=== PATIENT | male | born 1935 | race Caucasian/White ===

== ENCOUNTER 2016-09-10 03:47 | Observation (INO) ==
--- NOTE | 2016-09-10 03:49 | Emergency Department Note ---
Disposition Clinical Impression: Anemia, GI bleed, COPD (chronic obstructive pulmonary disease) Disposition: Admitted As Inpatient Condition: Fair General Adult HPI - General Chief complaint: ED Shortness of Breath/Dyspnea Stated complaint: ASIA Time Seen by Provider: 09/10/16 03:47 - Related Data Allergies Allergy/AdvReac Type Severity Reaction Status Date / Time No Known Allergies Allergy Verified 09/10/16 03:48 Past Medical History - Past Medical History Medical history: Reports: diabetes, hypertension, other Surgical history: Reports: appendectomy, other Psychiatric history: Reports: depression - Social History Smoking Status: Former smoker Alcohol use: Reports: none Drug use: Reports: none Course Vital Signs Temperature 98.9 F 09/10/16 03:49 Pulse Rate 93 09/10/16 03:49 Respiratory Rate 18 09/10/16 03:49 Blood Pressure 116/67 09/10/16 03:49 O2 Sat by Pulse Oximetry 89 09/10/16 03:49 Temperature 98.9 F 09/10/16 03:49 Pulse Rate 80 09/10/16 05:19 Respiratory Rate 18 09/10/16 06:17 Blood Pressure 124/68 09/10/16 06:17 O2 Sat by Pulse Oximetry 100 09/10/16 05:19 Oxygen Delivery Oxygen Delivery Nasal Cannula Medical Decision Making - Lab Data Result diagrams: 09/10/16 04:21 09/10/16 04:21 Lab Results 09/10/16 09/10/16 09/10/16 Range/Units 04:21 04:21 04:21 WBC 9.3 (4.3-11.1) K/mcL RBC 2.34 L (4.19-5.50) M/mcL Hgb 7.5 L (12.9-16.9) g/dL Hct 23.7 L (37.5-50.1) % MCV 101.3 H (83.0-100.0) fL MCH 32.1 (28.0-33.3) pg MCHC 31.6 (31.6-35.5) g/dL RDW 13.9 (11.5-14.5) % Plt Count 312 (140-400) K/mcL MPV 9.4 (9.4-12.4) fL Immature Gran % 1.0 (0-4) % Seg Neutrophils % 69.6 % Lymphocytes % 13.4 % Monocytes % 9.8 % Eosinophils % 5.8 % Basophils % 0.4 % Neutrophils # 6.5 (1.6-8.9) K/mcL Lymphocytes # 1.2 (0.6-4.6) K/mcL Monocytes # 0.9 (0.0-1.3) K/mcL Eosinophils # 0.5 (0.0-0.6) K/mcL Basophils # 0.0 (0.0-0.2) K/mcL Sodium 137 (136-145) mEq/L Potassium 4.0 (3.5-4.5) mEq/L Chloride 97 L (98-109) mEq/L Carbon Dioxide 33 H (19-29) mEq/L BUN 17 (8-26) mg/dL Creatinine 1.09 (0.72-1.25) mg/dL Est GFR ( Amer) > 60 (> 60) Est GFR (Non-Af Amer) > 60 (> 60) BUN/Creatinine Ratio 16 (6-26) Glucose 106 H (70-99) mg/dL Calculated Osmolality 286 (280-300) Lactic Acid 1.4 (0.5-2.2) mmol/L Calcium 8.4 L (8.6-10.8) mg/dL Troponin I (0-0.03) ng/mL B-Natriuretic Peptide (0-100) pg/mL 09/10/16 09/10/16 Range/Units 04:21 04:21 WBC (4.3-11.1) K/mcL RBC (4.19-5.50) M/mcL Hgb (12.9-16.9) g/dL Hct (37.5-50.1) % MCV (83.0-100.0) fL MCH (28.0-33.3) pg MCHC (31.6-35.5) g/dL RDW (11.5-14.5) % Plt Count (140-400) K/mcL MPV (9.4-12.4) fL Immature Gran % (0-4) % Seg Neutrophils % % Lymphocytes % % Monocytes % % Eosinophils % % Basophils % % Neutrophils # (1.6-8.9) K/mcL Lymphocytes # (0.6-4.6) K/mcL Monocytes # (0.0-1.3) K/mcL Eosinophils # (0.0-0.6) K/mcL Basophils # (0.0-0.2) K/mcL Sodium (136-145) mEq/L Potassium (3.5-4.5) mEq/L Chloride (98-109) mEq/L Carbon Dioxide (19-29) mEq/L BUN (8-26) mg/dL Creatinine (0.72-1.25) mg/dL Est GFR ( Amer) (> 60) Est GFR (Non-Af Amer) (> 60) BUN/Creatinine Ratio (6-26) Glucose (70-99) mg/dL Calculated Osmolality (280-300) Lactic Acid (0.5-2.2) mmol/L Calcium (8.6-10.8) mg/dL Troponin I 0.03 (0-0.03) ng/mL B-Natriuretic Peptide 193 H (0-100) pg/mL Attestation Statement - Attestation Attestation: I examined this patient and my medical decision-making was reviewed with the CHILD WELFARE SOCIAL WORKER/PA/Advanced Practice Nurse/Resident Physician. I agree with the documented findings, disposition and treatment plan as described except to the extent set forth below. [id number] time provided Patient presents from home by EMS complaining of dyspnea. He is not oxygen dependent. Appears in no acute distress and exam. Seen and evaluated in conjunction with the resident physician Daily
[2016-09-10] MEDS ORDERED: Ipratropium/Albuterol Neb 3 ML IH ONE (04:11)
--- NOTE | 2016-09-10 04:11 | Emergency Department Note ---
Disposition Clinical Impression: Anemia Qualifiers: Anemia type: unspecified type Qualified Code(s): D64.9 - Anemia, unspecified GI bleed Qualifiers: GI bleed type/associated pathology: melena Qualified Code(s): K92.1 - Melena COPD (chronic obstructive pulmonary disease) Qualifiers: COPD type: unspecified COPD Qualified Code(s): J44.9 - Chronic obstructive pulmonary disease, unspecified Disposition: Admitted As Inpatient Condition: Fair Forms: ED Satisfaction Letter Time of Disposition: 06:26 SOB HPI - General Chief Complaint: ED Shortness of Breath/Dyspnea Stated Complaint: ASIA Time Seen by Provider: 09/10/16 03:47 Source: patient, EMS Limitations: no limitations Nursing Notes Reviewed: Yes Vital Signs Reviewed: Yes - History of Present Illness Patient is a 80-year-old male who presents to [facility] ED with a chief complaint of difficulty breathing. Patient states he had a total knee replacement of the left knee done approximately one week ago in [place]. Ever since then, he has had exertional dyspnea. His daughter states he seems like he is out of breath all the time. He was initially on oxygen at rehabilitation but then was not sent home with any oxygen. Denies any nausea, vomiting, fever or chills. No problems with urination or bowel movements. No chest pain or abdominal pain. Patient does admit to a feeling of dysphagia ever since his surgery. States he has trouble swallowing food and feels like it gets caught in his chest and he has to cough it back up. Pt Subjective Complaint: shortness of breath Onset (ago): day(s) Severity: moderate Consistency/Duration: gradually worsening Improves with: oxygen, rest Worsens with: exertion Associated symptoms: Reports: wheezing. Denies: chest pain, fever, cough, nausea/vomiting, abdominal pain Treatment prior to arrival: oxygen Cough present: No - Related Data Home oxygen amount: none Allergies Allergy/AdvReac Type Severity Reaction Status Date / Time No Known Allergies Allergy Verified 09/10/16 03:48 All systems ED: reviewed and negative except as stated. Past Medical History - Past Medical History Attestation: Yes The following information was validated with the patient. Source: patient Medical history: Reports: diabetes, hypertension, other Surgical history: Reports: appendectomy, other Psychiatric history: Reports: depression - Social History Smoking Status: Former smoker Smokeless Tobacco Status: No Alcohol use: Reports: none Drug use: Reports: none Physical Exam - General Limitations: no limitations General appearance: alert - Head Head exam: atraumatic, normocephalic, normal inspection - Eye Eye exam: Present: normal appearance, EOMI - ENT ENT exam: normal exam, normal oropharynx, mucous membranes moist - Neck Neck exam: Present: normal inspection, full ROM, trachea midline - Chest Chest inspection: Present: normal inspection, symmetric chest wall rise - Respiratory Respiratory exam: Present: wheezes (anterior; decreased posterior breath sounds) - Cardiovascular Cardiovascular exam: Present: regular rate, normal rhythm, normal heart sounds - Abdominal Exam Abdominal exam: Present: soft, Non-Tender. Absent: tenderness, distention, guarding, rebound, rigidity - Rectal Exam Rectal exam: Present: normal inspection, heme (+) stool, black stool - Extremities Exam Extremities exam: Present: normal inspection, full ROM, pedal edema (LLE). Absent: tenderness - Back Exam Back exam: Present: normal inspection, full ROM. Absent: tenderness - Neurological Exam Neurological exam: Present: alert - Psychiatric Psychiatric exam: Present: normal affect, normal mood - Skin Skin exam: Present: warm, dry, intact, normal color Course Course Narrative: Patient seen and examined. Difficulty breathing since his surgery. Cardiopulmonary workup initiated. Concern for possible blood clot since she does have swelling in his leg as well as shortness of breath and hypoxemia. CTA of the chest ordered. Patient does have wheezes diffusely anteriorly. We will go ahead and order a DuoNeb treatment. - Reevaluation(s) Reevaluation #1: Patient's lab work shows hemoglobin of 7.5. When questioned if patient has any bleeding in his stool, they state it has been black like coal ever since the surgery. However, they attributed it to the iron tablets he is been taking. Patient continues to have some wheezing and shortness of breath. We will talk to hospitalist about admission for possible upper GI bleed and COPD exacerbation. IV Protonix and type and screen ordered. Time: 05:55 Reevaluation #2: I spoke with hospitalist Dr. Mcfarland who has accepted patient for admission. He would like us to go ahead and give one unit packed RBCs. This has been ordered. He would also like a Protonix drip. This has been ordered. Time: 06:23 Vital Signs Temperature 98.9 F 09/10/16 03:49 Pulse Rate 93 09/10/16 03:49 Respiratory Rate 18 09/10/16 03:49 Blood Pressure 116/67 09/10/16 03:49 O2 Sat by Pulse Oximetry 89 09/10/16 03:49 Temperature 98.9 F 09/10/16 03:49 Pulse Rate 80 09/10/16 05:19 Respiratory Rate 18 09/10/16 05:19 Blood Pressure 128/70 09/10/16 05:19 O2 Sat by Pulse Oximetry 100 09/10/16 05:19 Oxygen Delivery Oxygen Delivery Room Air Shortness of Breath/Dyspnea - Medical Records Medical records reviewed: Yes I reviewed the patient's medical records. - Lab Data Lab results reviewed: Yes I reviewed the patient's lab results. Result diagrams: 09/10/16 04:21 09/10/16 04:21 Lab Results 09/10/16 09/10/16 09/10/16 Range/Units 04:21 04:21 04:21 WBC 9.3 (4.3-11.1) K/mcL RBC 2.34 L (4.19-5.50) M/mcL Hgb 7.5 L (12.9-16.9) g/dL Hct 23.7 L (37.5-50.1) % MCV 101.3 H (83.0-100.0) fL MCH 32.1 (28.0-33.3) pg MCHC 31.6 (31.6-35.5) g/dL RDW 13.9 (11.5-14.5) % Plt Count 312 (140-400) K/mcL MPV 9.4 (9.4-12.4) fL Immature Gran % 1.0 (0-4) % Seg Neutrophils % 69.6 % Lymphocytes % 13.4 % Monocytes % 9.8 % Eosinophils % 5.8 % Basophils % 0.4 % Neutrophils # 6.5 (1.6-8.9) K/mcL Lymphocytes # 1.2 (0.6-4.6) K/mcL Monocytes # 0.9 (0.0-1.3) K/mcL Eosinophils # 0.5 (0.0-0.6) K/mcL Basophils # 0.0 (0.0-0.2) K/mcL Sodium 137 (136-145) mEq/L Potassium 4.0 (3.5-4.5) mEq/L Chloride 97 L (98-109) mEq/L Carbon Dioxide 33 H (19-29) mEq/L BUN 17 (8-26) mg/dL Creatinine 1.09 (0.72-1.25) mg/dL Est GFR ( Amer) > 60 (> 60) Est GFR (Non-Af Amer) > 60 (> 60) BUN/Creatinine Ratio 16 (6-26) Glucose 106 H (70-99) mg/dL Calculated Osmolality 286 (280-300) Lactic Acid 1.4 (0.5-2.2) mmol/L Calcium 8.4 L (8.6-10.8) mg/dL Troponin I (0-0.03) ng/mL B-Natriuretic Peptide (0-100) pg/mL 09/10/16 09/10/16 Range/Units 04:21 04:21 WBC (4.3-11.1) K/mcL RBC (4.19-5.50) M/mcL Hgb (12.9-16.9) g/dL Hct (37.5-50.1) % MCV (83.0-100.0) fL MCH (28.0-33.3) pg MCHC (31.6-35.5) g/dL RDW (11.5-14.5) % Plt Count (140-400) K/mcL MPV (9.4-12.4) fL Immature Gran % (0-4) % Seg Neutrophils % % Lymphocytes % % Monocytes % % Eosinophils % % Basophils % % Neutrophils # (1.6-8.9) K/mcL Lymphocytes # (0.6-4.6) K/mcL Monocytes # (0.0-1.3) K/mcL Eosinophils # (0.0-0.6) K/mcL Basophils # (0.0-0.2) K/mcL Sodium (136-145) mEq/L Potassium (3.5-4.5) mEq/L Chloride (98-109) mEq/L Carbon Dioxide (19-29) mEq/L BUN (8-26) mg/dL Creatinine (0.72-1.25) mg/dL Est GFR ( Amer) (> 60) Est GFR (Non-Af Amer) (> 60) BUN/Creatinine Ratio (6-26) Glucose (70-99) mg/dL Calculated Osmolality (280-300) Lactic Acid (0.5-2.2) mmol/L Calcium (8.6-10.8) mg/dL Troponin I 0.03 (0-0.03) ng/mL B-Natriuretic Peptide 193 H (0-100) pg/mL - Radiology Data Radiology results reviewed: Yes I reviewed the patient's radiology results. Chest X-Ray 09/10/16 03:49 IMPRESSION: Right basilar opacity with small right pleural effusion may represent pneumonia. Recommend clinical correlation and follow-up to resolution. D/ / Mj Olvera MD / Mj Olvera MD Interpreting Provider: Mj Olvera MD Chest CTA 09/10/16 03:56 IMPRESSION: 1. There is no evidence of a pulmonary embolism. 2. Small bilateral pleural effusions are noted. D/ / Aurelia Alexander MD / Aurelia Alexander MD Interpreting Provider: Aurelia Alexander MD - EKG Data EKG attestation: Yes I reviewed and interpreted this EKG. EKG results narrative: EKG done at [facility] shows normal sinus rhythm with a rate of [address] elevation or depression. Normal axis. Right bundle branch block present. Findings unchanged from prior EKG done 02/17/2002.
[2016-09-10 04:52] LABS: Basophils % 0.4 %; Eosinophils # 0.5 K/mcL (0.0-0.6); Eosinophils % 5.8 %; Hematocrit 23.7 % (37.5-50.1); Lymphocytes # 1.2 K/mcL (0.6-4.6); Lymphocytes % 13.4 %; Mean Corpuscular HGB Conc 31.6 g/dL (31.6-35.5); Mean Corpuscular Hemoglobin 32.1 pg (28.0-33.3); Mean Corpuscular Volume 101.3 fL (83.0-100.0); Mean Platelet Volume 9.4 fL (9.4-12.4); Monocytes # 0.9 K/mcL (0.0-1.3); Monocytes % 9.8 %; Neutrophils # 6.5 K/mcL (1.6-8.9); Platelet Count 312 K/mcL (140-400); Red Blood Count 2.34 M/mcL (4.19-5.50); Red Cell Distribution Width 13.9 % (11.5-14.5); Segmented Neutrophils % 69.6 %
[2016-09-10 05:04] LABS: Hemoglobin 7.5 g/dL (12.9-16.9)
[2016-09-10 05:07] LABS: BUN/Creatinine Ratio 16 (6-26); Blood Urea Nitrogen 17 mg/dL (8-26); Calcium 8.4 mg/dL (8.6-10.8); Carbon Dioxide 33 mEq/L (19-29); Chloride 97 mEq/L (98-109); Glucose 106 mg/dL (70-99); Osmolality,Calculated 286 (280-300); Sodium 137 mEq/L (136-145); eGFR For African Americans > 60 (> 60); eGFR For Non-African Americans > 60 (> 60)
[2016-09-10] MEDS: Pantoprazole 40 MG VIAL IVP ONE ×2 (05:54→05:55)
[2016-09-10] MEDS: Pantoprazole 40 MG in 0.9 % Sodium Chloride Mini Bag 100 ML IVC SCH ×4 (07:32→20:32)
--- NOTE | 2016-09-10 08:34 | Internal Med Progress Note ---
Date of Encounter: 09/10/16 Time of Encounter: 07:40 - Constitutional Vitals: Temp Pulse Resp BP Pulse Ox 98.9 F 80 18 124/68 100 09/10/16 03:49 09/10/16 05:19 09/10/16 06:17 09/10/16 06:17 09/10/16 05:19 General appearance: Present: cooperative, A&O X 3, answers questions appropriately - Neck Neck exam general surgery: Present: supple, trachea midline. Absent: lymphadenopathy - Respiratory Respiratory exam: Present: CTAB, rhonchi. Absent: accessory muscle use, rales - Cardiovascular Cardiovascular exam: Present: RRR, +S1, +S2. Absent: diastolic murmur, gallop, rubs, systolic murmur - GI/Abdominal GI/Abdominal exam: Present: normal bowel sounds, soft, no peritoneal signs. Absent: distended, tenderness - Extremities Exam Extremities exam: Present: warm, radial pulses palpable and symetrical. Absent : calf tenderness, cyanotic, pedal edema - Neurological Exam Neurological exam: Present: alert, oriented X3, no focal deficits. Absent: facial droop, speech deficit - Skin Skin exam: Present: dry, intact Internal Medicine: Result - Labs CBC & Chem 7: 09/10/16 04:21 09/10/16 04:21 - Impressions Impressions Chest X-Ray 09/10/16 03:49 IMPRESSION: Right basilar opacity with small right pleural effusion may represent pneumonia. Recommend clinical correlation and follow-up to resolution. D/ / Mj Olvera MD / Mj Olvera MD Interpreting Provider: Mj Olvera MD Chest CTA 09/10/16 03:56 IMPRESSION: 1. There is no evidence of a pulmonary embolism. 2. Small bilateral pleural effusions are noted. D/ / Aurelia Alexander MD / Aurelia Alexander MD Interpreting Provider: Aurelia Alexander MD Consult Discharge Plan - Plan Referrals: Darius Olivier DO [Primary Care Provider] - 09/12/16 8:15 am
[2016-09-10] MEDS: D5% in 0.45% NACL 1,000 ML IVC SCH ×2 (08:44→20:10)
--- NOTE | 2016-09-10 08:44 | Internal Med History&Physical ---
Date of Encounter: 09/10/16 Time of Encounter: 07:40 Assessment and Plan (1) GI bleed Current visit: Yes Status: Suspected Patient presented with a history of dark-colored stools. With severe anemia. Also complaining of epigastric abdominal pain. Concern for peptic ulcer disease with bleeding. Will keep nothing by mouth. Consult GI. Monitor blood counts. IV hydration. IV PPI. High risk for complications due to severity of anemia. Qualifiers: GI bleed type/associated pathology: melena Qualified Code(s): K92.1 - Melena (2) Anemia Current visit: Yes Status: Suspected Suspected acute blood loss anemia. Patient's last hemoglobin levels here was from February and at that time it was normal. Currently at 7.5. We will monitor blood counts. Check iron, folic acid and B12 levels. He has symptomatic anemia with shortness of breath. He has been ordered 1 unit of packed red blood cell transfusion. Qualifiers: Anemia type: other cause Other causes of anemia: acute posthemorrhagic Qualified Code(s): D62 - Acute posthemorrhagic anemia (3) Diabetes mellitus, type 2 Current visit: Yes Status: Chronic Patient reports a history of borderline diabetes. Will monitor blood sugars. 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 Will use bronchodilators as needed. Does not appear to be an active acute COPD exacerbation. Qualifiers: COPD type: chronic bronchitis Chronic bronchitis type: simple Qualified Code(s): J41.0 - Simple chronic bronchitis (5) History of left knee replacement Current visit: Yes Status: Chronic Status post recent left knee replacement surgery. High risk for DVT. However given possible acute GI bleed, we will hold off on medical anticoagulation to upper GI endoscopy is done. For now will place on SCDs. Internal Medicine - H&P: HPI Chief complaint: Shortness of breath and dark stools along with epigastric pain Admitted From: Emergency Dept Plans for Post Hospital Care: Home History of present illness: Mr. Calzada is a 80 year old male patient with a history of COPD, diabetes mellitus type 2, recent left knee replacement presented to the ER with complaints of shortness of breath. Patient is recovering from his surgery that was done about a week back at home. He has been having dark-colored stools for 2-3 months now but over the past couple of weeks is also having increased abdominal pain especially when he takes any food. It feels like a sharp and severe burning sensation. He has also been having some shortness of breath along with wheezing without with some cough. No sputum. No nausea or vomiting. No hematemesis. Patient does not recollect if he is on any anticoagulation but does take aspirin. Patient reports that he had a colonoscopy in 2014 but never an upper GI endoscopy. The colonoscopy showed that the patient had multiple diverticula without any active bleeding. Past Med Surg Social Fam HX - Past Medical History Attestation: Yes The following information was validated with the patient. Source: patient, old records reviewed Medical history: diabetes, hypertension, other Psychiatric history: depression - Past Surgical History Surgical History: appendectomy, other - Social History Smoking Status: Former smoker Smokeless Tobacco Status: No Alcohol use: none Drug use: none - Additional Family History Additional family history: Reviewed with patient and found to be noncontributory at this time Internal Medicine - H&P: Meds Allergies No Known Allergies Allergy (Verified 09/10/16 03:48) All Systems PM: A 10-system review of systems was performed and is negative for pertinent findings except as documented above in the HPI. - Constitutional Constitutional: no chills, no fever(s), no night sweats - EENT Eyes: no change in vision, no discharge, no pain, no photophobia Ears: no ear discharge, no ear pain, no tinnitus Nose, mouth and throat: no dysphagia, no nasal discharge, no neck pain, no sore throat - Cardiovascular Cardiovascular ROS IM: no chest pain, no diaphoresis, no dyspnea, no lightheadedness, no palpitations, no syncope - Respiratory Respiratory: cough, dyspnea, no wheezing, no excessive phlegm production - Gastrointestinal Gastrointestinal: abdominal pain, dyspepsia, melena, no diarrhea, no hematemesis , no hematochezia, no nausea, no vomiting - Musculoskeletal Musculoskeletal ROS IM: no numbness, no tingling - Integumentary Integumentary IM: no rash, no unusual bruising - Neurological Neurological ROS: no confusion, no convulsions, no focal weakness, no numbness, no tingling, no tremor(s) - Hematologic/Lymphatic Hematologic/Lymphatic: no easy bruising - Constitutional Vitals: Temp Pulse Resp BP Pulse Ox 98.9 F 80 18 124/68 100 09/10/16 03:49 09/10/16 05:19 09/10/16 06:17 09/10/16 06:17 09/10/16 05:19 General appearance: Present: cooperative, mild distress, A&O X 3, answers questions appropriately - Respiratory Respiratory exam: Present: rhonchi. Absent: accessory muscle use, rales, wheezes - Cardiovascular Cardiovascular exam: Present: RRR, +S1, +S2. Absent: diastolic murmur, gallop, rubs, systolic murmur - GI/Abdominal GI/Abdominal exam: Present: normal bowel sounds, soft, tenderness (epigastric), no peritoneal signs. Absent: distended - Extremities Exam Extremities exam: Present: warm, radial pulses palpable and symetrical. Absent : calf tenderness, cyanotic, pedal edema Additional comments: s/p left knee replacement - Neurological Exam Neurological exam: Present: alert, oriented X3, no focal deficits. Absent: facial droop, speech deficit - Skin Skin exam: Present: dry, intact, pallor Internal Med - H&P Results - Labs CBC & Chem 7: 09/10/16 04:21 09/10/16 04:21 - Impressions Impressions Chest X-Ray 09/10/16 03:49 IMPRESSION: Right basilar opacity with small right pleural effusion may represent pneumonia. Recommend clinical correlation and follow-up to resolution. D/ / Mj Olvera MD / Mj Olvera MD Interpreting Provider: Mj Olvera MD Chest CTA 09/10/16 03:56 IMPRESSION: 1. There is no evidence of a pulmonary embolism. 2. Small bilateral pleural effusions are noted. D/ / Aurelia Alexander MD / Aurelia Alexander MD Interpreting Provider: Aurelia Alexander MD
[2016-09-10] MEDS ORDERED: 0.9 % Sodium Chloride 250 ML ONE (10:14)
[2016-09-10] MEDS ORDERED: Dextrose Gel 15 GM PO PRN ×2 (10:24)
[2016-09-10] MEDS ORDERED: D5% in Water 1,000 ML IVC PRN ×2 (10:24→23:30)
[2016-09-10] MEDS ORDERED: *HR* Dextrose 50 % in Water (Syg) 50 ML SYRINGE IVP PRN (10:24)
[2016-09-10] MEDS ORDERED: Ipratropium/Albuterol Neb 3 ML IH PRN (10:25)
[2016-09-10] MEDS: Insulin LISPRO 300 UNITS/3 ML VIAL SQ SCH ×2 (12:09→20:27)
--- NOTE | 2016-09-10 12:35 | Gastroenterology Consult Note ---
<ZenaJustice Leiva - Last Filed: 09/10/16 12:33> Date of Encounter: 09/10/16 Time of Encounter: 11:20 - Assessment and plan (1) Anemia Current Visit: Yes Status: Suspected Assessment and plan: Hgb 7.5 on admission. Continue to monitor CBC and transfuse PRBC as needed. Qualifiers: Anemia type: other cause Other causes of anemia: acute posthemorrhagic Qualified Code(s): D62 - Acute posthemorrhagic anemia (2) GI bleed Current Visit: Yes Status: Suspected Assessment and plan: Patient with melena. Plan for EGD today to r/o esophagitis, gastritis, duodenitis, PUD, MW tear, or AVM. Keep pt NPO. Qualifiers: GI bleed type/associated pathology: melena Qualified Code(s): K92.1 - Melena (3) COPD (chronic obstructive pulmonary disease) Current Visit: Yes Status: Chronic Qualifiers: COPD type: chronic bronchitis Chronic bronchitis type: simple Qualified Code(s): J41.0 - Simple chronic bronchitis - Time Spent With Patient Total time spent is greater than 50% in coordination of care (as documented) at patient's floor/unit and/or counseling patient: GI History of Present Illness - Data of Consult Patient: new to practice Consult date: 09/10/16 Requesting Physician: Jossy Jin - Consult Narrative Reason for consult: Anemia, melena History of present illness: Mr. Calzada is a 80 year old male with PMHx of COPD, DM, HTN, and recent left knee replacement who presented to the ED with SOB. He reports having dark colored stool for the past 2-3 months. He reports increased abdominal pain over the past couple of weeks, which is worsened with food intake. He denies fever, chills, chest pain, nausea, vomiting, hematemesis, or hematochezia. Procedures: Colonoscopy 03/22/2015 Dr. Clark: Diverticulosis Barium enema w/air 03/22/2015: Diverticulosis otherwise unremarkable. NSAIDs: ASA Anticoagulation: None Past Med Surg Social Fam HX - Past Medical History Medical history: diabetes, hypertension, other Psychiatric history: depression - Past Surgical History Surgical History: appendectomy, other - Social History Smoking Status: Former smoker Smokeless Tobacco Status: No Alcohol use: none Drug use: none - Gastrointestinal Gastrointestinal: Present: as per HPI - Constitutional Constitutional: as per HPI - EENT Eyes: as per HPI Ears: Present: as per HPI Nose, mouth and throat: Present: as per HPI - Cardiovascular Cardiovascular ROS: Present: as per HPI - Respiratory Respiratory IM: Present: as per HPI - Genitourinary Genitourinary: Absent: change in color, Urinary frequency - Neurological ROS Neurological GI: Present: as per HPI - Hematologic/Lymphatic Hematologic/Lymphatic pediatric: Present: as per HPI - Musculoskeletal Musculoskeletal ROS GI: Present: as per HPI - Integumentary Integumentary GI: Present: as per HPI - Psychiatric ROS Psychiatric GI: Present: as per HPI - Endocrine Endocrine IM: Present: as per HPI - Constitutional Vitals: Temp Pulse Resp BP Pulse Ox 98.7 F 76 16 117/58 93 09/10/16 12:03 09/10/16 12:03 09/10/16 12:03 09/10/16 12:03 09/10/16 12:03 General appearance: Present: cooperative, A&O X 3, no acute distress, answers questions appropriately - Head Head exam: Present: atraumatic, normocephalic - Eye Eye exam: Present: normal appearance, sclera anicteric - ENT ENT exam: Present: mucous membranes dry - Neck Neck exam general surgery: Present: normal inspection, trachea midline - Respiratory Respiratory exam: Present: decreased breath sounds, CTAB. Absent: rales, rhonchi - Cardiovascular Cardiovascular exam: Present: RRR, +S1, +S2 - GI/Abdominal GI/Abdominal exam: Present: soft, tenderness (mild epigastric), no peritoneal signs. Absent: distended, firm, guarding - Rectal Rectal exam: Present: deferred - Extremities Exam Extremities exam: Present: warm - Neurological Exam Neurological exam: Present: no focal deficits - Psychiatric Psychiatric exam: Present: normal affect, normal mood - Skin Skin exam: Present: dry, intact, normal color, warm Results - Labs CBC & Chem 7: 09/10/16 04:21 09/10/16 04:21 Labs: Last Result Calcium 8.4 mg/dL (8.6-10.8) L 09/10/16 04:21 Troponin I 0.03 ng/mL (0-0.03) 09/10/16 04:21 Entire Visit Hgb 7.5 g/dL (12.9-16.9) L 09/10/16 04:21 Hct 23.7 % (37.5-50.1) L 09/10/16 04:21 Consult Discharge Plan - Plan Referrals: Darius Olivier DO [Primary Care Provider] - 09/12/16 8:15 am <Crystal Jeffery - Last Filed: 09/10/16 17:51> Date of Encounter: 09/10/16 Time of Encounter: 17:00 - Time Spent With Patient Total time spent is greater than 50% in coordination of care (as documented) at patient's floor/unit and/or counseling patient: GI History of Present Illness - Data of Consult Requesting Physician: Daria Palumbo CNP - Consult Narrative History of present illness: Mr. Calzada is a 80 year old male - Constitutional Vitals: Temp Pulse Resp BP Pulse Ox 98.8 F 84 16 138/82 94 09/10/16 15:52 09/10/16 17:22 09/10/16 17:22 09/10/16 17:22 09/10/16 17:22 Results - Labs CBC & Chem 7: 09/10/16 15:23 09/10/16 04:21 Labs: Last Result Calcium 8.4 mg/dL (8.6-10.8) L 09/10/16 04:21 Troponin I 0.03 ng/mL (0-0.03) 09/10/16 04:21 Entire Visit Hgb 7.9 g/dL (12.9-16.9) L 09/10/16 15:23 Hct 24.6 % (37.5-50.1) L 09/10/16 15:23 - Attending Attestation I examined this patient and my medical decision-making was reviewed with the PAPER WINDER/PA/Advanced Practice Nurse/Resident Physician. I agree with the documented findings, disposition and treatment plan as described except to the extent set forth below.
[2016-09-10 15:31] LABS: Hematocrit 24.6 % (37.5-50.1); Hemoglobin 7.9 g/dL (12.9-16.9)
[2016-09-10] MEDS ORDERED: *HR* Midazolam HCl 5 MG/5 ML VIAL IVP ONE (16:13)
[2016-09-10] MEDS ORDERED: *HR* FentaNYL (PF) 100 MCG/2 ML VIAL ONE (16:14)
[2016-09-10] MEDS ORDERED: Simethicone 40 MG/0.6 ML MLS IR ONE (16:27)
[2016-09-10] MEDS ORDERED: *HR* FentaNYL (PF) 100 MCG/2 ML VIAL IVP PRN (16:27)
[2016-09-10] MEDS ORDERED: Tetracaine/Benzocaine/Butamben 200MG/SPRAY (100SPY/BOT) MM ONE (16:27)
[2016-09-10] MEDS ORDERED: *HR* Midazolam HCl 5 MG/5 ML VIAL IVP PRN (16:27)
[2016-09-10] MEDS ORDERED: 0.9 % Sodium Chloride 1,000 ML IVC SCH (16:30)
[2016-09-10] MEDS ORDERED: 0.9 % Sodium Chloride 500 ML IVC SCH (16:45)
--- NOTE | 2016-09-10 19:06 | Electrocardiograph Report ---
[place] [address] Test Date: 2016-09-10 Pat Name: Herman Calzada Department: 105 Room: 3B22 Gender: M Ambulatory Care Nurse: RAULITO : 1935 Requested By: Prema Ambrosio Order Number: [id number] Reading MD: Yajaira Noble Measurements Intervals [place] Rate: 89 P: 58 CT: 160 QRS: 22 QRSD: 126 T: 50 QT: 365 QTc: 412 Interpretive Statements SINUS RHYTHM RIGHT BUNDLE BRANCH BLOCK [120+ ms QRS DURATION, UPRIGHT V1, 40+ ms S IN I/aVL/V4/V5/V6] Electronically Signed On 09-10-2016 19:04:43 EDT by Yajaira Noble
[2016-09-10 21:39] LABS: Hematocrit 25.3 % (37.5-50.1); Hemoglobin 8.1 g/dL (12.9-16.9)
[2016-09-11] MEDS: Pantoprazole 40 MG in 0.9 % Sodium Chloride Mini Bag 100 ML IVC SCH ×5 (00:13→22:30)
[2016-09-11 01:49] LABS: Basophils % 0.5 %; Eosinophils # 0.6 K/mcL (0.0-0.6); Eosinophils % 8.3 %; Hematocrit 26.6 % (37.5-50.1); Hemoglobin 8.3 g/dL (12.9-16.9); Immature Granulocytes % 0.7 % (0-4); Lymphocytes # 0.9 K/mcL (0.6-4.6); Lymphocytes % 11.9 %; Mean Corpuscular HGB Conc 31.2 g/dL (31.6-35.5); Mean Corpuscular Hemoglobin 31.7 pg (28.0-33.3); Mean Corpuscular Volume 101.5 fL (83.0-100.0); Monocytes # 0.8 K/mcL (0.0-1.3); Monocytes % 11.1 %; Platelet Count 290 K/mcL (140-400); Red Blood Count 2.62 M/mcL (4.19-5.50); Red Cell Distribution Width 14.4 % (11.5-14.5); Segmented Neutrophils % 67.5 %
[2016-09-11 02:01] LABS: BUN/Creatinine Ratio 12 (6-26); Blood Urea Nitrogen 13 mg/dL (8-26); Calcium 8.2 mg/dL (8.6-10.8); Carbon Dioxide 34 mEq/L (19-29); Chloride 100 mEq/L (98-109); Glucose 125 mg/dL (70-99); Osmolality,Calculated 290 (280-300); Sodium 139 mEq/L (136-145); eGFR For African Americans > 60 (> 60); eGFR For Non-African Americans > 60 (> 60)
[2016-09-11] MEDS: D5% in 0.45% NACL 1,000 ML IVC SCH ×2 (07:59→21:15)
[2016-09-11] MEDS: Insulin LISPRO 300 UNITS/3 ML VIAL SQ SCH ×4 (08:39→21:19)
--- NOTE | 2016-09-11 18:35 | Internal Med Progress Note ---
Date of Encounter: 09/11/16 Time of Encounter: 18:33 - Assessment and plan (1) Anemia Current Visit: Yes Status: Suspected Qualifiers: Anemia type: other cause Other causes of anemia: acute posthemorrhagic Qualified Code(s): D62 - Acute posthemorrhagic anemia (2) GI bleed Current Visit: Yes Status: Suspected Qualifiers: GI bleed type/associated pathology: melena Qualified Code(s): K92.1 - Melena (3) COPD (chronic obstructive pulmonary disease) Current Visit: Yes Status: Chronic Qualifiers: COPD type: chronic bronchitis Chronic bronchitis type: simple Qualified Code(s): J41.0 - Simple chronic bronchitis (4) Diabetes mellitus, type 2 Current Visit: Yes Status: Chronic Qualifiers: Diabetes mellitus complication status: without complication Diabetes mellitus correction insulin use: without bed bug exterminator use Qualified Code(s): E11.9 - Type 2 diabetes mellitus without complications (5) History of left knee replacement Current Visit: Yes Status: Chronic - Subjective Interval history: Mr. Hermna Low is an 80-year-old male presented with melena and GI bleed. Recently he had knee surgery and was placed on blood thinners. Blood thinners as stopped and did gastroenterology was consulted. EGD was done today which showed no active bleed but significant amount of gastritis. Patient will be started on Protonix. - Constitutional Vitals: Temp Pulse Resp BP Pulse Ox 98.4 F 78 16 138/76 95 09/11/16 15:11 09/11/16 15:11 09/11/16 15:11 09/11/16 15:11 09/11/16 15:11 General appearance: Present: cooperative, mild distress, A&O X 3, answers questions appropriately - Head Head exam: Present: atraumatic, normocephalic - Eye Eye exam: Present: PERRL, conjuntiva pink, sclera anicteric Pupils: Present: PERRL - Neck Neck exam general surgery: Present: supple, trachea midline. Absent: lymphadenopathy - Respiratory Respiratory exam: Present: CTAB. Absent: accessory muscle use, rales, rhonchi, wheezes - Cardiovascular Cardiovascular exam: Present: RRR, +S1, +S2. Absent: diastolic murmur, gallop, rubs, systolic murmur - GI/Abdominal GI/Abdominal exam: Present: normal bowel sounds, soft, no peritoneal signs. Absent: distended, tenderness - Extremities Exam Extremities exam: Present: warm, radial pulses palpable and symetrical. Absent : calf tenderness, cyanotic, pedal edema - Neurological Exam Neurological exam: Present: CN II-XII intact, oriented X3, no focal deficits. Absent: pronater drift, facial droop, speech deficit - Skin Skin exam: Present: dry, intact Internal Medicine: Result - Labs CBC & Chem 7: 09/11/16 01:40 09/11/16 01:40 Labs: Short CBC 09/10/16 09/11/16 Range/Units 21:18 01:40 WBC 7.4 (4.3-11.1) K/mcL Hgb 8.1 L 8.3 L (12.9-16.9) g/dL Hct 25.3 L 26.6 L (37.5-50.1) % Plt Count 290 (140-400) K/mcL Neutrophils # 5.0 (1.6-8.9) K/mcL BMP 09/11/16 01:40 Sodium 139 Potassium 4.0 Chloride 100 Carbon Dioxide 34 H BUN 13 Creatinine 1.06 Glucose 125 H Calcium 8.2 L - VTE Documentation of Mechanical Device: Intermittent pneumatic compression device Consult Discharge Plan - Plan Referrals: Darius Olivier DO [Primary Care Provider] - 09/12/16 8:15 am
[2016-09-12] MEDS: Pantoprazole 40 MG in 0.9 % Sodium Chloride Mini Bag 100 ML IVC SCH ×2 (04:12→09:46)
[2016-09-12 05:20] LABS: Basophils % 0.5 %; Eosinophils # 0.7 K/mcL (0.0-0.6); Eosinophils % 7.6 %; Hematocrit 28.7 % (37.5-50.1); Hemoglobin 8.8 g/dL (12.9-16.9); Immature Granulocytes % 0.8 % (0-4); Lymphocytes # 1.1 K/mcL (0.6-4.6); Lymphocytes % 12.2 %; Mean Corpuscular HGB Conc 30.7 g/dL (31.6-35.5); Mean Corpuscular Hemoglobin 31.4 pg (28.0-33.3); Mean Corpuscular Volume 102.5 fL (83.0-100.0); Mean Platelet Volume 9.3 fL (9.4-12.4); Monocytes # 0.7 K/mcL (0.0-1.3); Monocytes % 8.3 %; Neutrophils # 6.3 K/mcL (1.6-8.9); Platelet Count 373 K/mcL (140-400); Red Cell Distribution Width 14.3 % (11.5-14.5); Segmented Neutrophils % 70.6 %
[2016-09-12 05:41] LABS: Alanine Aminotransferase < 6 Units/L (0-55); Albumin 2.6 g/dL (3.5-5.0); Albumin/Globulin Ratio 0.8 (1.1-2.2); Alkaline Phosphatase 65 Units/L (38-126); Aspartate Amino Transferase 14 Units/L (5-34); BUN/Creatinine Ratio 10 (6-26); Bilirubin,Total 1.1 mg/dL (0.2-1.2); Blood Urea Nitrogen 11 mg/dL (8-26); Calcium 8.6 mg/dL (8.6-10.8); Carbon Dioxide 31 mEq/L (19-29); Chloride 101 mEq/L (98-109); Globulin 3.4 g/dL (2.4-3.5); Glucose 118 mg/dL (70-99); Osmolality,Calculated 286 (280-300); Potassium 4.1 mEq/L (3.5-4.5); Sodium 138 mEq/L (136-145); eGFR For African Americans > 60 (> 60); eGFR For Non-African Americans > 60 (> 60)
[2016-09-12] MEDS: Insulin LISPRO 300 UNITS/3 ML VIAL SQ SCH ×4 (07:19→20:42)
[2016-09-12] MEDS: D5% in 0.45% NACL 1,000 ML IVC SCH (09:46)
--- NOTE | 2016-09-12 15:06 | Discharge Summary ---
Date of Encounter: 09/12/16 Time of Encounter: 14:59 - Discharge Diagnosis (1) Anemia Priority: Secondary Status: Suspected Qualifiers: Anemia type: other cause Other causes of anemia: acute posthemorrhagic Qualified Code(s): D62 - Acute posthemorrhagic anemia (2) GI bleed Priority: Primary Status: Suspected Qualifiers: GI bleed type/associated pathology: melena Qualified Code(s): K92.1 - Melena (3) COPD (chronic obstructive pulmonary disease) Priority: Secondary Status: Chronic Qualifiers: COPD type: chronic bronchitis Chronic bronchitis type: simple Qualified Code(s): J41.0 - Simple chronic bronchitis (4) Diabetes mellitus, type 2 Priority: Secondary Status: Chronic Qualifiers: Diabetes mellitus complication status: without complication Diabetes mellitus prison insulin use: without exterminator helper termite use Qualified Code(s): E11.9 - Type 2 diabetes mellitus without complications (5) History of left knee replacement Priority: Secondary Status: Chronic - Discharge Medications Prescriptions: Omeprazole [PriLOSEC] 20 mg PO BIDAC #60 cap Sucralfate [Carafate] 1 gm GTUBE QIDAC #120 udc Home Medications: Ferrous Sulfate [Iron] 325 mg PO TID 09/10/16 [History] GlipiZIDE [Glucotrol Xl] 2.5 mg PO DAILY 09/10/16 [History] Lisinopril [Zestril] 10 mg PO DAILY 09/10/16 [History] Metformin HCl [Glucophage] 1,000 mg PO BID 09/10/16 [History] Metoprolol [Lopressor] 12.5 mg PO BID 09/10/16 [History] Oxycodone HCl [Oxaydo] 5 - 10 mg PO Q6H PRN 09/10/16 [History] Sertraline [Zoloft] 50 mg PO DAILY 09/10/16 [History] Simvastatin [Zocor] 80 mg PO DAILY 09/10/16 [History] Omeprazole [PriLOSEC] 20 mg PO BIDAC #60 cap 09/12/16 [Rx] Sucralfate [Carafate] 1 gm GTUBE QIDAC #120 udc 09/12/16 [Rx] Allergies/Adverse Reactions: Allergies No Known Allergies Allergy (Verified 09/10/16 03:48) Date of admission: 09/10/16 06:06 Primary care physician: Darius Olivier, Consults: 09/10/16 07:31 Consult to Gastroenterology [CONS] Routine Consulting Provider: Анна Lacey Reason for Consult: Anemia Call Completed: Yes 09/10/16 17:56 PT [Consult to Physical Therapy] [CONS] Routine Comment: Evaluate, develop and implement POC Reason for Consult: Evaluation 09/10/16 17:57 Consult to Occupational Therapy [CONS] Routine Comment: Evaluate, develop and implement POC Reason for Consult: Evaluation 09/10/16 17:58 Consult to Police Reserves Commander [CONS] Routine Reason for SW Consult: Discharge planning Discharging clinician: Jeannette Laura Anticipated date of discharge: 09/12/16 - Patient Status Disposition: Transfer SNF Condition: Fair Overall status at discharge: patient is progressing back to baseline - Discharge Instructions Follow Up With: Darius Olivier DO [Primary Care Provider] - 09/12/16 8:15 am - Diet and Activity Activity: as per physical therapy Diet: advance to your usual diet Interval History: Mr. Herman Low is an 80-year-old male presented with melena and GI bleed. Recently he had knee surgery and was placed on blood thinners. Blood thinners are stopped EGD was done today which showed no active bleed but significant amount of gastritis. Patient will be started on Protonix. His hemoglobin is stable so he can be discharged to longterm. Hospital course: Mr. Calzada is a 80 year old male - Time Spent with Patient Total time spent providing and/or coordinating discharge services: Greater than 30 minutes - Constitutional Vitals: Temp Pulse Resp BP Pulse Ox 98.3 F 88 16 139/67 97 09/12/16 14:55 09/12/16 14:55 09/12/16 14:55 09/12/16 14:55 09/12/16 14:55 General appearance: Present: cooperative, mild distress, A&O X 3, answers questions appropriately - Head Head exam: Present: atraumatic, normocephalic - Eye Eye exam: Present: PERRL, conjuntiva pink, sclera anicteric Pupils: Present: PERRL - Neck Neck exam general surgery: Present: supple, trachea midline. Absent: lymphadenopathy - Respiratory Respiratory exam: Present: CTAB. Absent: accessory muscle use, rales, rhonchi, wheezes - Cardiovascular Cardiovascular exam: Present: RRR, +S1, +S2. Absent: diastolic murmur, gallop, rubs, systolic murmur - GI/Abdominal GI/Abdominal exam: Present: normal bowel sounds, soft, no peritoneal signs. Absent: distended, tenderness - Extremities Exam Extremities exam: Present: warm, radial pulses palpable and symetrical. Absent : calf tenderness, cyanotic, pedal edema - Neurological Exam Neurological exam: Present: CN II-XII intact, oriented X3, no focal deficits. Absent: pronater drift, facial droop, speech deficit - Skin Skin exam: Present: dry, intact - VTE Documentation of Mechanical Device: Intermittent pneumatic compression device
[2016-09-13 04:55] LABS: Basophils # 0.1 K/mcL (0.0-0.2); Basophils % 0.7 %; Eosinophils # 0.6 K/mcL (0.0-0.6); Hematocrit 27.9 % (37.5-50.1); Hemoglobin 8.9 g/dL (12.9-16.9); Immature Granulocytes % 0.6 % (0-4); Lymphocytes # 1.1 K/mcL (0.6-4.6); Lymphocytes % 13.4 %; Mean Corpuscular HGB Conc 31.9 g/dL (31.6-35.5); Mean Corpuscular Hemoglobin 32.2 pg (28.0-33.3); Mean Corpuscular Volume 101.1 fL (83.0-100.0); Mean Platelet Volume 9.5 fL (9.4-12.4); Monocytes # 0.8 K/mcL (0.0-1.3); Monocytes % 9.1 %; Neutrophils # 5.7 K/mcL (1.6-8.9); Platelet Count 378 K/mcL (140-400); Red Blood Count 2.76 M/mcL (4.19-5.50); Red Cell Distribution Width 14.5 % (11.5-14.5); Segmented Neutrophils % 69.2 %
[2016-09-13 05:05] LABS: Albumin 2.5 g/dL (3.5-5.0); Albumin/Globulin Ratio 0.8 (1.1-2.2); Alkaline Phosphatase 59 Units/L (38-126); Aspartate Amino Transferase 12 Units/L (5-34); BUN/Creatinine Ratio 8 (6-26); Bilirubin,Total 0.9 mg/dL (0.2-1.2); Blood Urea Nitrogen 9 mg/dL (8-26); Calcium 8.5 mg/dL (8.6-10.8); Carbon Dioxide 31 mEq/L (19-29); Chloride 102 mEq/L (98-109); Globulin 3.2 g/dL (2.4-3.5); Glucose 112 mg/dL (70-99); Osmolality,Calculated 287 (280-300); Potassium 4.2 mEq/L (3.5-4.5); Sodium 139 mEq/L (136-145); Total Protein 5.7 g/dL (6.0-8.3); eGFR For African Americans > 60 (> 60); eGFR For Non-African Americans > 60 (> 60)
[2016-09-13 05:06] LABS: Alanine Aminotransferase < 6 Units/L (0-55)
[2016-09-13] MEDS: Insulin LISPRO 300 UNITS/3 ML VIAL SQ SCH ×2 (08:19→12:17)
[2016-09-13 11:16] VITALS: BP 154/87
--- NOTE | 2016-09-13 13:00 | Physician Discharge Referral ---
ExtendedCare Referral Info Transfer To: F Provider in Charge: margraito Provider in Charge after Transfer: PCP Institutional Level of Care: Skilled - Diagnosis (1) Anemia Status: Suspected (2) GI bleed Status: Suspected (3) COPD (chronic obstructive pulmonary disease) Status: Chronic (4) Diabetes mellitus, type 2 Status: Chronic (5) History of left knee replacement Status: Chronic - Transfer Medications Prescriptions: Omeprazole [PriLOSEC] 20 mg PO BIDAC #60 cap Sucralfate [Carafate] 1 gm GTUBE QIDAC #120 udc Home Medications: Ferrous Sulfate [Iron] 325 mg PO TID 09/10/16 [History] GlipiZIDE [Glucotrol Xl] 2.5 mg PO DAILY 09/10/16 [History] Lisinopril [Zestril] 10 mg PO DAILY 09/10/16 [History] Metformin HCl [Glucophage] 1,000 mg PO BID 09/10/16 [History] Metoprolol [Lopressor] 12.5 mg PO BID 09/10/16 [History] Oxycodone HCl [Oxaydo] 5 - 10 mg PO Q6H PRN 09/10/16 [History] Sertraline [Zoloft] 50 mg PO DAILY 09/10/16 [History] Simvastatin [Zocor] 80 mg PO DAILY 09/10/16 [History] Omeprazole [PriLOSEC] 20 mg PO BIDAC #60 cap 09/12/16 [Rx] Sucralfate [Carafate] 1 gm GTUBE QIDAC #120 udc 09/12/16 [Rx] Allergies/Adverse Reactions: Allergies No Known Allergies Allergy (Verified 09/10/16 03:48) - Respiratory Orders Smoking Cessation: Smoking cessation has been advised. For more information, call the [place] Tobacco Quit Line at 8-237-RNQB-NOW. CERTIFICATION: I certify that the transfer of the above named patient to an Extended Care Facility is necessary for the continuing treatment of the diagnosis listed. The above information is true and accurate reflection of patient's current condition. Confidential - Redisclosure prohibited without a patient's written consent.
--- NOTE | 2016-09-13 13:10 | Internal Med Progress Note ---
Date of Encounter: 09/13/16 Time of Encounter: 13:08 - Assessment and plan (1) Anemia Current Visit: Yes Status: Suspected Qualifiers: Anemia type: other cause Other causes of anemia: acute posthemorrhagic Qualified Code(s): D62 - Acute posthemorrhagic anemia (2) GI bleed Current Visit: Yes Status: Suspected Qualifiers: GI bleed type/associated pathology: melena Qualified Code(s): K92.1 - Melena (3) COPD (chronic obstructive pulmonary disease) Current Visit: Yes Status: Chronic Qualifiers: COPD type: chronic bronchitis Chronic bronchitis type: simple Qualified Code(s): J41.0 - Simple chronic bronchitis (4) Diabetes mellitus, type 2 Current Visit: Yes Status: Chronic Qualifiers: Diabetes mellitus complication status: without complication Diabetes mellitus halfway insulin use: without ocean transportation intermediary use Qualified Code(s): E11.9 - Type 2 diabetes mellitus without complications (5) History of left knee replacement Current Visit: Yes Status: Chronic (6) Fall Current Visit: Yes Status: Acute Qualifiers: Qualified Code(s): W19.XXXA - Unspecified fall, initial encounter - Subjective Interval history: Mr. Herman Low is an 80-year-old male presented with melena and GI bleed. Recently he had knee surgery and was placed on blood thinners. Blood thinners as stopped and did gastroenterology was consulted. EGD was done today which showed no active bleed but significant amount of gastritis. Patient will be started on Protonix. Patient had a [facility]. It was unwitnessed though he denied having his head or neck. Anything. His his examination was unremarkable. CT head obtained which was negative for bleed. He was observed overnight and will be discharged to prison now as he is stable. - Constitutional Vitals: Temp Pulse Resp BP Pulse Ox 98.2 F 78 16 154/87 95 09/13/16 11:00 09/13/16 11:00 09/13/16 11:00 09/13/16 11:00 09/13/16 11:00 General appearance: Present: cooperative, mild distress, A&O X 3, answers questions appropriately - Head Head exam: Present: atraumatic, normocephalic - Eye Eye exam: Present: PERRL, conjuntiva pink, sclera anicteric Pupils: Present: PERRL - Neck Neck exam general surgery: Present: supple, trachea midline. Absent: lymphadenopathy - Respiratory Respiratory exam: Present: CTAB. Absent: accessory muscle use, rales, rhonchi, wheezes - Cardiovascular Cardiovascular exam: Present: RRR, +S1, +S2. Absent: diastolic murmur, gallop, rubs, systolic murmur - GI/Abdominal GI/Abdominal exam: Present: normal bowel sounds, soft, no peritoneal signs. Absent: distended, tenderness - Extremities Exam Extremities exam: Present: warm, radial pulses palpable and symetrical. Absent : calf tenderness, cyanotic, pedal edema - Neurological Exam Neurological exam: Present: CN II-XII intact, oriented X3, no focal deficits. Absent: pronater drift, facial droop, speech deficit - Skin Skin exam: Present: dry, intact Internal Medicine: Result - Labs CBC & Chem 7: 09/13/16 04:04 09/13/16 04:04 Labs: Short CBC 09/13/16 Range/Units 04:04 WBC 8.2 (4.3-11.1) K/mcL Hgb 8.9 L (12.9-16.9) g/dL Hct 27.9 L (37.5-50.1) % Plt Count 378 (140-400) K/mcL Neutrophils # 5.7 (1.6-8.9) K/mcL BMP 09/13/16 04:04 Sodium 139 Potassium 4.2 Chloride 102 Carbon Dioxide 31 H BUN 9 Creatinine 1.09 Glucose 112 H Calcium 8.5 L Liver Function 09/13/16 Range/Units 04:04 Total Bilirubin 0.9 (0.2-1.2) mg/dL AST 12 (5-34) Units/L ALT < 6 (0-55) Units/L Alkaline Phosphatase 59 (38-126) Units/L Albumin 2.5 L (3.5-5.0) g/dL - Impressions Impressions Head CT 09/12/16 16:19 IMPRESSION: No acute intracranial abnormality. [id number] diffuse atrophy appropriate for age. Moderate to large amount of chronic ischemic white matter change also appropriate for age. D/ / Austin Avalos MD / Austin Avalos MD Interpreting Provider: Austin Avalos MD - VTE Documentation of Mechanical Device: Intermittent pneumatic compression device Consult Discharge Plan - Plan Additional Instructions: Follow-up appointments: If there is not an appointment listed below, please call your physician and schedule a follow-up appointment. If you have congestive heart failure and your symptoms return, make an appointment with your physician. Medication List: Carry an up to date list of medications you are taking at all time. We have given you an updated medication list including any new medications that you have been prescribed. Please provide that list to your primary provider Symptoms: If your condition changes or you experience any of the following symptoms, notify your physician immediately: Unusual or worsening pain, fever, persistent nausea and vomiting, bleeding, increase in swelling (especially in your legs), sudden weight gain, extreme dizziness, chest pain, increased drainage or redness from a wound or incision. Go to the emergency department if you experience a problem with breathing. Weights: If you have a history of swelling or shortness of breath, weigh yourself daily and notify your physician if you have a weight gain of two or more pounds in one day or 5 or more pounds in a week. If you experience any of the warning signs for stroke: Sudden numbness or weakness of the face, arm or leg; especially on one side of the body, sudden confusion, trouble speaking or understanding, sudden trouble seeing in one or both eyes, sudden trouble walking, dizziness, loss of balance or coordination, sudden sever headache with no cause; Call 911 or go to the emergency room. Stroke is a medical emergency. Some risk factors for stroke: Age, cigarette smoking, diabetes, excessive alcohol consumption, family history , high blood pressure, overweight, physical inactivity, prior stroke, heart attack, diagnosis of carotid artery stenosis or other artery disease. If you smoke, STOP: Smoking or tobacco use significantly increases your risk of heart and lung disease. Your chance of disease greatly increases if you continue to smoke. For more information, call the [place] tobacco quit line for smoking cessation QUIT-NOW ( ) Referrals: Darius Olivier DO [Primary Care Provider] - 09/12/16 8:15 am Prescriptions: Omeprazole [PriLOSEC] 20 mg PO BIDAC #60 cap Sucralfate [Carafate] 1 gm GTUBE QIDAC #120 udc
== END 2016-09-13 13:15 ==
LOC: 3BNU 03:47 → EMEROO 03:47 → 3BNU 06:23 → 3NENU 09-11 00:21
PROVIDERS: ADMIT Internal Medicine; ATTEND Registered Nurse

== ENCOUNTER 2018-05-31 10:11 | Observation (INO) ==
[2018-05-31] MEDS ORDERED: methylPREDNISolone 125 MG/2 ML VIAL IVP ONE (10:30)
[2018-05-31] MEDS ORDERED: Ipratropium/Albuterol Neb 3 ML IH ONE (10:30)
--- NOTE | 2018-05-31 10:33 | Emergency Department Note ---
Disposition Clinical Impression: Hypoxia, HUMERA (acute kidney injury) COPD (chronic obstructive pulmonary disease) Qualifiers: COPD type: unspecified COPD Qualified Code(s): J44.9 - Chronic obstructive pulmonary disease, unspecified Disposition: Admitted As Inpatient Condition: Good Referrals: Darius Olivier DO [Primary Care Provider] - Forms: ED Satisfaction Letter Time of Disposition: 11:26 General Adult HPI - General Chief complaint: ED Weakness Stated complaint: ASIA, cough Time Seen by Provider: 05/31/18 10:15 Source: patient Limitations: no limitations Nursing Notes Reviewed: Yes Vital Signs Reviewed: Yes - History of Present Illness HPI Narrative: Male patient presenting to emergency department with increased fatigue over the last 2 weeks. Does have a history of COPD. Reports increasing shortness of breath over the last one week. Does have a cough that is somewhat productive. He states his cough is more than normal for him. Is complaining of dyspnea on e xertion. Denies any swelling to his extremities. No history of CHF. Reports occasional left-sided chest pain associated with the cough but does not have this at this time. Reports that 2 weeks ago he had some nausea vomiting and diarrhea. That has since resolved. States that he now just feels generally tired does not want to get out of bed and short of breath. Does not wear oxygen. Has been using his breathing treatments with no relief. Pain Scale: 0 - Related Data Home Medications Medication Instructions Recorded Confirmed Ferrous Sulfate [Iron] 325 mg PO TID 09/10/16 09/10/16 GlipiZIDE [Glucotrol Xl] 2.5 mg PO DAILY 09/10/16 09/10/16 Lisinopril [Zestril] 10 mg PO DAILY 09/10/16 09/10/16 Metformin HCl [Glucophage] 1,000 mg PO BID 09/10/16 09/10/16 Metoprolol [Lopressor] 12.5 mg PO BID 09/10/16 09/10/16 Oxycodone HCl [Oxaydo] 5 - 10 mg PO Q6H PRN 09/10/16 09/10/16 Sertraline [Zoloft] 50 mg PO DAILY 09/10/16 09/10/16 Simvastatin [Zocor] 80 mg PO DAILY 09/10/16 09/10/16 Previous Rx's Medication Instructions Recorded Omeprazole [PriLOSEC] 20 mg PO BIDAC #60 cap 09/12/16 Sucralfate [Carafate] 1 gm GTUBE QIDAC #120 udc 09/12/16 Allergies Allergy/AdvReac Type Severity Reaction Status Date / Time No Known Allergies Allergy Verified 09/10/16 03:48 All systems ED: reviewed and negative except as stated. Review of Systems: As Per HPI Constitutional: Reports: chills. Denies: fever Cardiovascular: Reports: chest pain (Occasional associated with the cough. Not at this time.) Respiratory: Reports: cough, dyspnea, sputum production Gastrointestinal: Reports: melena (Patient reports dark stools proximally 2 weeks ago but he said since resolved.). Denies: abdominal pain, nausea, vomiting, diarrhea, hematemesis, hematochezia Endocrine: Reports: fatigue Past Medical History - Past Medical History Attestation: Yes The following information was validated with the patient. Source: patient Medical history: Reports: COPD, diabetes, GERD, hypertension, other Surgical history: Reports: appendectomy, other Psychiatric history: Reports: depression - Social History Smoking Status: Former smoker Smokeless Tobacco Status: Yes Alcohol use: Reports: none Drug use: Reports: none Physical Exam - General Limitations: no limitations General appearance: alert, in no apparent distress - Head Head exam: atraumatic, normocephalic, normal inspection - Eye Eye exam: Present: normal appearance, PERRL, EOMI - ENT ENT exam: normal exam, normal oropharynx, mucous membranes moist - Neck Neck exam: Present: normal inspection, full ROM, trachea midline - Chest Chest inspection: Present: normal inspection, symmetric chest wall rise. Absent: tenderness - Respiratory Respiratory exam: Present: wheezes, prolonged expiratory phase, other (Patient has some moderate expiratory wheezing. No tripoding. Does not appear to be in respiratory distress however oxygen saturation staying around the low 90s). Absent: respiratory distress, accessory muscle use - Cardiovascular Cardiovascular exam: Present: regular rate, normal rhythm, normal heart sounds - Abdominal Exam Abdominal exam: Present: soft, Non-Tender. Absent: tenderness, distention, guarding, rebound, rigidity, organomegaly, Skinner's sign, Rovsing's sign, tenderness at McBurney's Point - Extremities Exam Extremities exam: Present: normal inspection, full ROM, normal capillary refill. Absent: tenderness, pedal edema - Neurological Exam Neurological exam: Present: alert, oriented X3 - Psychiatric Psychiatric exam: Present: normal affect, normal mood - Skin Skin exam: Present: warm, dry, intact, normal color Course Course Narrative: Male patient with two-week history of cough increased from baseline with a history of COPD. Does not wear oxygen at home. No known history of cancer. Reporting shortness of breath dyspnea on exertion with no history of CHF over the past 2 weeks is been getting worse. He now does not want to get out of bed because he is so short of breath and is so tired. Lung sounds have some expiratory wheezing. He does not appear to be in respiratory distress all sitting in bed however his oxygen saturation is been staying in the low 90s. We will get a chest x-ray basic lab workup on patient and provide him with a triple DuoNeb. States he has been using his inhaler with no real relief of the symptoms. We will provide patient with steroids. We will reassess after the breathing treatments. - Reevaluation(s) Reevaluation #1: Patient reevaluated. Was finished with his albuterol treatment. 87% on room air. We will place patient on 2 L of oxygen at this time. No signs of pneumonia on his chest x-ray. We will be admitting patient to the hospital for COPD exacerbation. We will provide him with a gram of Rocephin at this time. Patient is agreeable with this plan. His lung sounds did improve after the breathing treatment. Patient states that he is no longer a smoker however he did smoke at a young age. States that all the siblings have similar episodes of their COPD. Time: 11:24 - Consultations Consultation #1: Dr Falcon accepted Pt in stable condition. Time: 12:02 Vital Signs Temperature 97.6 F 05/31/18 10:14 Pulse Rate 106 05/31/18 10:14 Respiratory Rate 20 05/31/18 10:14 Blood Pressure 112/61 05/31/18 10:14 O2 Sat by Pulse Oximetry 96 05/31/18 10:14 Temperature 97.6 F 05/31/18 10:14 Pulse Rate 106 05/31/18 10:14 Respiratory Rate 18 05/31/18 11:31 Blood Pressure 112/61 05/31/18 10:14 O2 Sat by Pulse Oximetry 95 05/31/18 11:31 Oxygen Delivery Oxygen Delivery Room Air Medical Decision Making - Medical Records Medical records reviewed: Yes I reviewed the patient's medical records. - Lab Data Lab results reviewed: Yes I reviewed the patient's lab results. Result diagrams: 05/31/18 10:51 05/31/18 10:51 Lab Results 05/31/18 05/31/18 05/31/18 Range/Units 10:51 10:51 10:51 WBC 6.2 (4.3-11.1) K/mcL RBC 4.05 L (4.19-5.50) M/mcL Hgb 12.5 L (12.9-16.9) g/dL Hct 39.7 (37.5-50.1) % MCV 98.0 (83.0-100.0) fL MCH 30.9 (28.0-33.3) pg MCHC 31.5 L (31.6-35.5) g/dL RDW 13.3 (11.5-14.5) % Plt Count 222 (140-400) K/mcL MPV 10.0 (9.4-12.4) fL Immature Gran % 0.3 (0-4) % Seg Neutrophils % 58.5 % Lymphocytes % 21.6 % Monocytes % 10.6 % Eosinophils % 8.5 % Basophils % 0.5 % Neutrophils # 3.6 (1.6-8.9) K/mcL Lymphocytes # 1.3 (0.6-4.6) K/mcL Monocytes # 0.7 (0.0-1.3) K/mcL Eosinophils # 0.5 (0.0-0.6) K/mcL Basophils # 0.0 (0.0-0.2) K/mcL Sodium 138 (136-145) mEq/L Potassium 4.2 (3.5-5.1) mEq/L Chloride 105 (98-107) mEq/L Carbon Dioxide 25 (23-29) mEq/L BUN 29 H (8-23) mg/dL Creatinine 1.50 H (0.70-1.30) mg/dL Est GFR ( Amer) 54 L (> 60) Est GFR (Non-Af Amer) 45 L (> 60) BUN/Creatinine Ratio 19 (6-26) Glucose 144 H (70-105) mg/dL Calculated Osmolality 294 (280-300) Lactic Acid 2.2 (0.5-2.2) mmol/L Calcium 8.8 (8.6-10.3) mg/dL Troponin I < 0.03 (< 0.04) ng/mL B-Natriuretic Peptide (Less than 100) pg/mL 05/31/18 Range/Units 10:51 WBC (4.3-11.1) K/mcL RBC (4.19-5.50) M/mcL Hgb (12.9-16.9) g/dL Hct (37.5-50.1) % MCV (83.0-100.0) fL MCH (28.0-33.3) pg MCHC (31.6-35.5) g/dL RDW (11.5-14.5) % Plt Count (140-400) K/mcL MPV (9.4-12.4) fL Immature Gran % (0-4) % Seg Neutrophils % % Lymphocytes % % Monocytes % % Eosinophils % % Basophils % % Neutrophils # (1.6-8.9) K/mcL Lymphocytes # (0.6-4.6) K/mcL Monocytes # (0.0-1.3) K/mcL Eosinophils # (0.0-0.6) K/mcL Basophils # (0.0-0.2) K/mcL Sodium (136-145) mEq/L Potassium (3.5-5.1) mEq/L Chloride (98-107) mEq/L Carbon Dioxide (23-29) mEq/L BUN (8-23) mg/dL Creatinine (0.70-1.30) mg/dL Est GFR ( Amer) (> 60) Est GFR (Non-Af Amer) (> 60) BUN/Creatinine Ratio (6-26) Glucose (70-105) mg/dL Calculated Osmolality (280-300) Lactic Acid (0.5-2.2) mmol/L Calcium (8.6-10.3) mg/dL Troponin I (< 0.04) ng/mL B-Natriuretic Peptide 29 (Less than 100) pg/mL - Radiology Data Radiology results reviewed: Yes I reviewed the patient's radiology results. Chest X-Ray 05/31/18 10:31 IMPRESSION: 1. No acute cardiopulmonary process identified. 2. Stable findings suggesting COPD. D/ / Quinten Archibald MD / Quinten Archibald MD Interpreting Provider: Quinten Archibald MD - EKG Data EKG #1 EKG attestation: Yes I reviewed and interpreted this EKG. EKG results narrative: Normal sinus rhythm at a rate of 96. AL interval is 173. Castration is 126. QT is 372. QTC is 471. Patient does have a right bundle branch block. No signs of acute ischemia. No significant change from previous EKG dated 09/10/2016. Attestation Statement - Attestation Attestation: Patient was seen with resident physician. I reviewed the history, physical, assessment and plan, and agree with the findings. I also personally evaluated this patient and had [id number] time with this patient. 82-year-old male presents emergency Department with worsening shortness of breath. Patient and family member states has been ongoing for about 2 weeks. Saw his PCP a couple weeks ago was prescribed an inhaler and some antibiotics. Patient states he never really got better after the treatments. He said that he still has a significant amount of mucus that he has to cough up. He says he cannot cannot really walk around much simply because he gets short of breath and very weak. He says after he coughs up mucus plugging she tends to feel little bit better for short period of time and his right back to feeling bad. He denies fevers or chills. No chest pain. No abdominal pain. No increase in weight. No swelling of extremities. Review of systems as above remainder negative. Physical exam vital signs stable initially with hypoxia.. ENT is unremarkable. Heart regular rhythm and rate. Lungs clear cannot hear any wheezing or crac kles. Abdomen is soft and nontender. Extremities unremarkable with no edema. Neurologically intact without focal deficits. Skin no rashes. Psych normal. ED course. I will give the patient 3 breathing treatments. We will check a chest x-ray. EKG shows no acute ischemic changes and is consistent with prior EKG. We will also check labs and a flu. Patient responded well to treatment. But he had an initial oxygen requirement which she does not have at home, and this is worsened with ambulation. This continued to be suboptimal after treatments. Chest x-ray showed COPD. He was given a dose of antibiotics here just with his history of bronchitis and increased sputum production. Because of the patient's age and other risk factors we opted to admit the patient for additional respiratory treatments. We called hospital service who agreed to accept the patient. Hemodynamically he remained stable while in the emergency department. I agree with resident physician assessment and plan.
[2018-05-31 11:10] LABS: Basophils % 0.5 %; Eosinophils # 0.5 K/mcL (0.0-0.6); Eosinophils % 8.5 %; Hematocrit 39.7 % (37.5-50.1); Hemoglobin 12.5 g/dL (12.9-16.9); Immature Granulocytes % 0.3 % (0-4); Lymphocytes # 1.3 K/mcL (0.6-4.6); Lymphocytes % 21.6 %; Mean Corpuscular HGB Conc 31.5 g/dL (31.6-35.5); Mean Corpuscular Hemoglobin 30.9 pg (28.0-33.3); Monocytes # 0.7 K/mcL (0.0-1.3); Monocytes % 10.6 %; Neutrophils # 3.6 K/mcL (1.6-8.9); Platelet Count 222 K/mcL (140-400); Red Blood Count 4.05 M/mcL (4.19-5.50); Red Cell Distribution Width 13.3 % (11.5-14.5); Segmented Neutrophils % 58.5 %
[2018-05-31] MEDS ORDERED: cefTRIAXone 1,000 MG in Water for inj. (sterile) 20 ML 10 ML IVP ONE (11:22)
[2018-05-31 11:30] LABS: BUN/Creatinine Ratio 19 (6-26); Blood Urea Nitrogen 29 mg/dL (8-23); Calcium 8.8 mg/dL (8.6-10.3); Carbon Dioxide 25 mEq/L (23-29); Chloride 105 mEq/L (98-107); Glucose 144 mg/dL (70-105); Osmolality,Calculated 294 (280-300); Potassium 4.2 mEq/L (3.5-5.1); Sodium 138 mEq/L (136-145); Troponin I < 0.03 ng/mL (< 0.04); eGFR For Non-African Americans 45 (> 60)
[2018-05-31] MEDS ORDERED: 0.9 % Sodium Chloride 1,000 ML IVC ONE (11:52)
[2018-05-31] MEDS ORDERED: Ipratropium/Albuterol Neb 3 ML IH PRN (14:18)
--- NOTE | 2018-05-31 14:30 | Internal Med History&Physical ---
Date of Encounter: 05/31/18 Time of Encounter: 13:15 Internal Medicine - H&P: HPI Admitted From: Home Plans for Post Hospital Care: Home History of present illness: Mr. Calzada is a 82 year old male with possible medical history of COPD, type 2 diabetes, possible hyperlipidemia presents with a two-week history of cough with yellow or green sputum. He is also complaining of dyspnea especially with exertion. He denies any neck pain. In the ER he was found to be in the COPD exacerbation and treated with nebs and oxygen along with steroids and improved. He is not on home oxygen. The patient's creatinine in this visit is slightly elevated at 1.5. His baseline creatinine is around 1.25. The patient's review of systems is positive for chronic phlegm production off-and-on which improves and sometimes gets worse. He is a past smoker. He also complains of feeling excessively cold and having no energy on a chronic basis the last few months. Past Med Surg Social Fam HX - Past Medical History Medical history: COPD, diabetes, GERD, hypertension, other Additional medical history: meniscal tear Psychiatric history: depression - Past Surgical History Surgical History: appendectomy, other Additional surgical history: tonsilectomy,heart cath, - Social History Smoking Status: Former smoker Smokeless Tobacco Status: Yes Alcohol use: none Drug use: none - Additional Family History Additional family history: The patient states that his father had rectal cancer but of a heart attack. Internal Medicine - H&P: Meds Ferrous Sulfate [Iron] 325 mg PO TID 09/10/16 [History] GlipiZIDE [Glucotrol Xl] 2.5 mg PO DAILY 09/10/16 [History] Lisinopril [Zestril] 10 mg PO DAILY 09/10/16 [History] Metformin HCl [Glucophage] 1,000 mg PO BID 09/10/16 [History] Metoprolol [Lopressor] 12.5 mg PO BID 09/10/16 [History] Sertraline [Zoloft] 50 mg PO DAILY 09/10/16 [History] Simvastatin [Zocor] 80 mg PO DAILY 09/10/16 [History] Omeprazole [PriLOSEC] 20 mg PO BIDAC #60 cap 09/12/16 [Rx] Allergy/AdvReac Type Severity Reaction Status Date / Time No Known Allergies Allergy Verified 09/10/16 03:48 All Systems PM: A 10-system review of systems was performed and is negative for pertinent findings except as documented above in the HPI. - Constitutional Vitals: Temp Pulse Resp BP Pulse Ox 97.5 F L 89 16 123/69 94 05/31/18 14:07 05/31/18 14:07 05/31/18 14:07 05/31/18 14:07 05/31/18 14:07 General appearance: Present: mild distress, A&O X 3, pleasant, answers questions appropriately Exam: Patient is lying in bed. - Head Head exam: Present: atraumatic, normocephalic - Eye Eye exam: Present: EOMI, conjuntiva pink, sclera anicteric - Neck Neck exam general surgery: Present: supple, trachea midline. Absent: thyromegaly - Respiratory Respiratory exam: Present: decreased breath sounds. Absent: accessory muscle use, rales, rhonchi, wheezes - Cardiovascular Cardiovascular exam: Present: RRR, +S1, +S2. Absent: diastolic murmur, gallop, rubs, systolic murmur - GI/Abdominal GI/Abdominal exam: Present: soft, no peritoneal signs. Absent: distended, tend erness - Extremities Exam Extremities exam: Present: warm, radial pulses palpable and symmetrical. Absent: calf tenderness, cyanotic, pedal edema - Neurological Exam Neurological exam: Present: CN II-XII intact, oriented X3, no focal deficits. Absent: pronater drift, facial droop, speech deficit - Skin Skin exam: Present: dry, intact Internal Med - H&P Results - Labs CBC & Chem 7: 05/31/18 10:51 05/31/18 10:51 Labs: Short CBC 05/31/18 Range/Units 10:51 WBC 6.2 (4.3-11.1) K/mcL Hgb 12.5 L (12.9-16.9) g/dL Hct 39.7 (37.5-50.1) % Plt Count 222 (140-400) K/mcL Neutrophils # 3.6 (1.6-8.9) K/mcL BMP 05/31/18 10:51 Sodium 138 Potassium 4.2 Chloride 105 Carbon Dioxide 25 BUN 29 H Creatinine 1.50 H Glucose 144 H Calcium 8.8 Cardiac Enzymes 05/31/18 Range/Units 10:51 Troponin I < 0.03 (< 0.04) ng/mL - Impressions ITS Impressions Chest X-Ray 05/31/18 10:31 IMPRESSION: 1. No acute cardiopulmonary process identified. 2. Stable findings suggesting COPD. D/ / Quinten Archibald MD / Quinten Archibald MD Interpreting Provider: Quinten Archibald MD - Assessment and Plan (1) COPD exacerbation Current Visit: Yes Status: Acute Assessment and plan: Admit patient to acute medicine. DuoNeb every 6 hours. IV Solu-Medrol 20 mg every 8 hours. Ceftriaxone 1000 mg every day. DVT prophylaxis with Lovenox. Check CT thorax for suspicion of bronchiectasis based on history. (2) CKD (chronic kidney disease), stage III Current Visit: Yes Status: Acute Assessment and plan: Monitor labs. Patient does not have acute renal injury proliferation. (3) Diabetes mellitus, type 2 Current Visit: No Status: Chronic Assessment and plan: Continue home meds. Accu-Cheks and sliding scale as needed. Qualifiers: Diabetes mellitus manager long term care insulin use: without manager long term care use Diabetes mellitus complication status: without complication Qualified Code(s): E11.9 - Type 2 diabetes mellitus without complications (4) HLD (hyperlipidemia) Current Visit: Yes Status: Acute Assessment and plan: Continue current statin. Qualifiers: Hyperlipidemia type: unspecified Qualified Code(s): E78.5 - Hyperlipidemia, unspecified (5) Fatigue Current Visit: Yes Status: Acute Assessment and plan: Check TSH and free T4 given history suspicious for hypothyroidism. Qualifiers: Qualified Code(s): R53.83 - Other fatigue - Summary of Assessment and Plan Summary of Assessment and Plan: copd exac - Time Spent With Patient Total time spent is greater than 50% in coordination of care (as documented) at patient's floor/unit and/or counseling patient: 25 - 35 minutes
[2018-05-31] MEDS ORDERED: Dextrose 4 GM Chewable Tablets PO PRN ×2 (14:48)
[2018-05-31] MEDS ORDERED: Dextrose Gel 15 GM/37.5 ML TUBE PO PRN ×2 (14:48)
[2018-05-31] MEDS ORDERED: *HR* Dextrose 50 % in Water (Syg) 50 ML SYRINGE IVP PRN (14:48)
[2018-05-31] MEDS ORDERED: D5% in Water 1,000 ML IVC PRN (14:48)
[2018-05-31] MEDS: Insulin LISPRO 300 UNITS/3 ML VIAL SQ SCH (15:27)
[2018-05-31 15:57] LABS: Thyroid Stimulating Hormone 1.448 mcIU/mL (0.340-5.600)
[2018-05-31] MEDS ORDERED: *HR* Metformin 500 MG TABLET PO SCH (17:00)
[2018-05-31] MEDS: MethylPREDNISolone 40 MG/ML VIAL IVP SCH (23:52)
[2018-06-01] MEDS ORDERED: 0.9 % Sodium Chloride 500 ML IVC ONE (01:42)
[2018-06-01 04:11] LABS: Immature Granulocytes % 0.5 % (0-4); Lymphocytes # 0.6 K/mcL (0.6-4.6); Lymphocytes % 10.2 %; Mean Corpuscular HGB Conc 30.6 g/dL (31.6-35.5); Mean Corpuscular Hemoglobin 30.3 pg (28.0-33.3); Mean Corpuscular Volume 99.1 fL (83.0-100.0); Monocytes # 0.1 K/mcL (0.0-1.3); Monocytes % 2.1 %; Neutrophils # 5.3 K/mcL (1.6-8.9); Platelet Count 214 K/mcL (140-400); Red Blood Count 3.43 M/mcL (4.19-5.50); Red Cell Distribution Width 13.3 % (11.5-14.5); Segmented Neutrophils % 87.2 %
[2018-06-01 04:13] LABS: Hemoglobin 10.4 g/dL (12.9-16.9)
[2018-06-01 04:37] LABS: Calcium 8.1 mg/dL (8.6-10.3); Potassium 5.7 mEq/L (3.5-5.1)
[2018-06-01] MEDS ORDERED: *HR* Enoxaparin 40 MG/0.4 ML SYRINGE SQ SCH (06:00)
[2018-06-01] MEDS: MethylPREDNISolone 40 MG/ML VIAL IVP SCH ×2 (07:24→16:14)
[2018-06-01] MEDS: Insulin LISPRO 300 UNITS/3 ML VIAL SQ SCH ×3 (07:36→16:11)
[2018-06-01] MEDS ORDERED: cefTRIAXone 1,000 MG in Water for inj. (sterile) 20 ML 10 ML IVP SCH (09:00)
[2018-06-01] MEDS ORDERED: *HR* GlipiZIDE XL (24 HR) 2.5 MG TABLET PO SCH (09:00)
--- NOTE | 2018-06-01 14:50 | Discharge Summary ---
- NOTES TO OUTPATIENT PROVIDER Notes to Outpatient Provider: f/u with PCP in one week. Orders not resulted at time of discharge: Pending orders 06/02/18 04:00 BMP [Basic Metabolic Panel] AM 0400 Complete Blood Count [HEME] AM 0400 Date of Encounter: 06/01/18 Time of Encounter: 14:50 - Discharge Diagnosis (1) Bronchitis Priority: Primary Status: Acute (2) COPD exacerbation Priority: Primary Status: Acute (3) Bronchiectasis Priority: Primary Status: Acute Qualifiers: Bronchiectasis type: uncomplicated Qualified Code(s): J47.9 - Bronchiectasis, uncomplicated (4) CKD (chronic kidney disease), stage III Priority: Secondary Status: Acute (5) HLD (hyperlipidemia) Priority: Secondary Status: Acute Qualifiers: Hyperlipidemia type: unspecified Qualified Code(s): E78.5 - Hyperlipidemia, unspecified (6) Diabetes mellitus, type 2 Priority: Secondary Status: Chronic Qualifiers: Diabetes mellitus terminal operator insulin use: without mcc use Diabetes mellitus complication status: without complication Qualified Code(s): E11.9 - Type 2 diabetes mellitus without complications Hospital course: Mr. Calzada is a 82 year old male with possible medical history of COPD, type 2 diabetes, possible hyperlipidemia presents with a two-week history of cough with yellow or green sputum. He is also complaining of dyspnea especially with exertion. He denies any neck pain. In the ER he was found to be in the COPD exacerbation and treated with nebs and oxygen along with steroids. Presented in the hospital and started him on high-dose IV steroids and scheduled bronchodilator therapy. He had a CT of chest which showed bilateral bronchiectasis. Pt stated he is feeling lot better today. He is breathing comfortably on RA. So will d/c him home in stable condition today with PO Abx Doxy for 5 days, and tapering dose of steroids. He does have CKD-3, which is worsening now so reocmmend to stop taking Metformin. His HbA1C from 12/09 @ 6.2, so he will be ok with small dose of Glipizde 2.5mg Daily. Today his K+ slightly elevated which is improved in repeat labs. - Time Spent with Patient Total time spent providing and/or coordinating discharge services: - Discharge Medications Prescriptions: New predniSONE [PredniSONE] 40 mg PO DAILY #10 tablet Budesonide/Formoterol 80/4.5 [Symbicort 80/4.5] 2 puff IH BID #1 hfa.aer.ad RX: Doxycycline Hyclate 100 mg PO BID #10 tablet Continue RX: GlipiZIDE [Glucotrol Xl] 2.5 mg PO 0800 RX: Sertraline [Zoloft] 50 mg PO 0800 RX: Metoprolol [Lopressor] 12.5 mg PO 0800,1999 RX: Lisinopril [Zestril] 10 mg PO 0800 RX: Simvastatin [Zocor] 80 mg PO HS RX: Ferrous Sulfate [Iron] 325 mg PO 0800,1599,1999 RX: Albuterol Sulfate [Ventolin Hfa] 2 puff IH Q6H PRN PRN Reason: Shortness Of Breath RX: Cinnamon Bark [Cinnamon] 500 mg PO BID RX: Omeprazole [PriLOSEC] 20 mg PO 0800,1600 Discontinued RX: Oxycodone HCl [Oxaydo] 5 - 10 mg PO Q6H PRN PRN Reason: Pain RX: Metformin HCl [Glucophage] 1,000 mg PO 799,1999 RX: Sucralfate [Carafate] 1 gm [facility] [place] Medications: RX: Ferrous Sulfate [Iron] 325 mg PO 0800,1600,199909/10/16 [History] RX: GlipiZIDE [Glucotrol Xl] 2.5 mg PO 0800 09/10/16 [History] RX: Lisinopril [Zestril] 10 mg PO 0800 09/10/16 [History] RX: Metoprolol [Lopressor] 12.5 mg PO 0800,199909/10/16 [History] RX: Sertraline [Zoloft] 50 mg PO 0800 09/10/16 [History] RX: Simvastatin [Zocor] 80 mg PO HS 09/10/16 [History] RX: Albuterol Sulfate [Ventolin Hfa] 2 puff IH Q6H PRN 05/31/18 [History] RX: Cinnamon Bark [Cinnamon] 500 mg PO BID 05/31/18 [History] RX: Omeprazole [PriLOSEC] 20 mg PO 0800,1600 05/31/18 [History] Budesonide/Formoterol 80/4.5 [Symbicort 80/4.5] 2 puff IH BID #1 hfa.aer.ad 06/01/18 [Rx] RX: Doxycycline Hyclate 100 mg PO BID #10 tablet 06/01/18 [Rx] predniSONE [PredniSONE] 40 mg PO DAILY #10 tablet 06/01/18 [Rx] Allergies/Adverse Reactions: Allergy/AdvReac Type Severity Reaction Status Date / Time No Known Allergies Allergy Verified 09/10/16 03:48 Date of admission: 05/31/18 12:07 Primary care physician: Christopher Olivier DO Consults: 06/01/18 09:07 Consult to Nurse Navigator [CONS] Routine Comment: COPD - Constitutional Vitals: Temp Pulse Resp BP Pulse Ox 97.3 F L 72 16 107/58 94 06/01/18 10:36 06/01/18 10:36 06/01/18 10:36 06/01/18 10:36 06/01/18 10:36 General appearance: Present: A&O X 3, pleasant, answers questions appropriately Exam: Gen: Alert, awake, Oriented to time,place and person Chest: Diminished breath sounds B/L, Mild wheezing, No crackles, No rales Heart: S1S2+ RRR No murmurs Abd: Soft, NT, BS +, No organomegaly Ext: No edema, pulses are palpable, No calf tenderness Neuro : Benign findings Skin: No rash. - Patient Status Disposition: Home, Self-Care Condition: Good Overall status at discharge: patient is back to baseline - Ambulatory Orders Ambulatory Orders: Basic Metabolic Panel [CHEM] Time Frame: 2 Days, Facility: [facility], Location: Lab - Discharge Instructions Instructions: Doxycycline (By mouth), Prednisone (By mouth), Budesonide/Formoterol (By breathing), Chronic Obstructive Pulmonary Disease (DC), Fall Prevention (DC), Hyperlipidemia (DC) Follow Up With: [facility] [Provider Group] (Our office will call with an appointment time and date with next available leadership program internship.) Darius Olivier DO [Primary Care Provider] - 06/11/18 9:30 am () - Diet and Activity Activity: increase activity as tolerated Diet: low salt diet
[2018-06-01 15:13] VITALS: BP 129/62
[2018-06-01 15:43] LABS: Calcium 8.7 mg/dL (8.6-10.3); Potassium 5.2 mEq/L (3.5-5.1)
--- NOTE | 2018-06-01 22:42 | Electrocardiograph Report ---
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
== END 2018-06-01 17:03 | disposition home or self-care (01) ==
LOC: 3BNU 10:11 → EMEROOARM 10:11 → SUATTDRO 12:07 → 3BNU 13:21
PROVIDERS: ADMIT Internal Medicine; ATTEND Family Medicine